=== PATIENT | female | born 1985 | race Caucasian/White ===

== ENCOUNTER 2018-12-21 10:14 | Outpatient (CLI) | payer OTHER, MEDICAID ==
[~2018-12-21 10:14] MED LIST: CYCL-1 PO; LIDO700A32 TOP
[2018-12-21 11:36] LABS: BASOPHILS # (AUTO) 0.1 X10'3 (0-0.2); BASOPHILS % (AUTO) 0.6 % (0-1); EOSINOPHILS # (AUTO) 0.1 X10'3 (0-0.9); EOSINOPHILS % (AUTO) 1.4 % (0-6); HEMATOCRIT 39.5 % (35.0-45.0); HEMOGLOBIN 13.5 g/dl (12.0-16.0); LYMPHOCYTES # (AUTO) 2.6 X10'3 (1.1-4.8); LYMPHOCYTES % (AUTO) 27.5 % (21-51); MEAN CORPUSCULAR HEMOGLOBIN 30.2 PG (27.0-31.0); MEAN CORPUSCULAR VOLUME 88.6 FL (78-98); MEAN PLATELET VOLUME 6.9 FL (7.4-10.4); MONOCYTES # (AUTO) 0.6 X10'3 (0-0.9); MONOCYTES % (AUTO) 6.1 % (2-12); NEUTROPHILS # (AUTO) 6.1 X10'3 (1.8-7.7); NEUTROPHILS % (AUTO) 64.4 % (42-75); PLATELET COUNT 389 X10'3 (140-440); RED BLOOD COUNT 4.46 X10'6 (4.20-5.60); RED CELL DISTRIBUTION WIDTH 13.1 % (11.5-14.5); WHITE BLOOD COUNT 9.5 X10'3 (4.5-11.0)
[2018-12-21 12:11] LABS: ALANINE AMINOTRANSFERASE 19 U/L (12-78); ALBUMIN 3.9 G/DL (3.4-5.0); ALBUMIN/GLOBULIN RATIO 1.2 (1.1-1.5); ALKALINE PHOSPHATASE 70 IU/L (46-116); ANION GAP 5 (8-16); ASPARTATE AMINO TRANSFERASE 1 U/L (10-37); BILIRUBIN,TOTAL 0.6 MG/DL (0.1-1.0); BLOOD UREA NITROGEN 7 MG/DL (7-18); BUN/CREATININE RATIO 9.2 (6.6-38.0); CHLORIDE 105 MMOL/L (99-107); CHOL/HDL RATIO 2.9 (0.00-4.99); CHOLESTEROL 140 MG/DL (0-200); CREATININE 0.76 MG/DL (0.40-0.90); GLUCOSE 87 MG/DL (70-104); HDL CHOLESTEROL 49 MG/DL (35-60); LDL CHOLESTEROL 84 MG/DL (50-100); SODIUM 140 MMOL/L (135-145); TOTAL CARBON DIOXIDE 29.6 MMOL/L (24-32); TOTAL PROTEIN 7.1 G/DL (6.4-8.2); TRIGLYCERIDES 64 MG/DL (20-135); eGFR 87 ML/MIN
[2018-12-22 11:30] LABS: VITAMIN D, 25-HYDROXY 23.4 ng/mL (30.0-100.0)
== END 2018-12-21 23:59 | disposition home or self-care (01) ==
LOC: LAB 10:14
PROVIDERS: ATTEND Family Medicine
DX: F31.81 Bipolar II disorder (principal); E03.9 Hypothyroidism, unspecified; Z98.890 Other specified postprocedural states
CPT/HCPCS: 36415; 80053; 80061; 82306; 82607; 82746; 84436; 84443; 85025

== ENCOUNTER 2019-05-14 15:02 | Emergency (ER) | payer OTHER, MEDICAID ==
[~2019-05-14] VITALS: Ht 164.5 cm; Wt 78.0 kg
[2019-05-14 15:12] VITALS: BP 109/67
[2019-05-14] MEDS ORDERED: AMOX-580 PO (16:29)
== END 2019-05-14 16:41 | disposition home or self-care (01) ==
LOC: ER 15:03
DX: J32.0 Chronic maxillary sinusitis (principal); R05 Cough; Z79.899 Other long term (current) drug therapy
CPT/HCPCS: 99283

== ENCOUNTER 2024-04-20 12:02 | Outpatient (CLI) | payer BC, OTHER ==
[2024-04-20 13:05] LABS: BASOPHILS % (AUTO) 0.6 % (0-1); EOSINOPHILS # (AUTO) 0.1 X10'3 (0-0.9); EOSINOPHILS % (AUTO) 1.9 % (0-6); HEMATOCRIT 40.2 % (35.0-45.0); HEMOGLOBIN 13.6 g/dl (12.0-16.0); LYMPHOCYTES # (AUTO) 2.6 X10'3 (1.1-4.8); LYMPHOCYTES % (AUTO) 33.7 % (21-51); MEAN CORPUSCULAR HEMOGLOBIN 30.3 PG (27.0-31.0); MEAN CORPUSCULAR HGB CONC 33.8 g/dL (33.0-36.5); MEAN CORPUSCULAR VOLUME 89.4 FL (78-98); MEAN PLATELET VOLUME 7.1 FL (7.4-10.4); MONOCYTES # (AUTO) 0.6 X10'3 (0-0.9); MONOCYTES % (AUTO) 7.9 % (2-12); NEUTROPHILS # (AUTO) 4.3 X10'3 (1.8-7.7); NEUTROPHILS % (AUTO) 55.9 % (42-75); PLATELET COUNT 417 X10'3 (140-440); RED CELL DISTRIBUTION WIDTH 13.9 % (11.5-14.5); WHITE BLOOD COUNT 7.7 X10'3 (4.5-11.0)
[2024-04-20 13:06] LABS: ALANINE AMINOTRANSFERASE 20 U/L (12-78); ALBUMIN/GLOBULIN RATIO 1.2 (1.1-1.5); ALKALINE PHOSPHATASE 61 IU/L (46-116); ANION GAP 5 (8-16); ASPARTATE AMINO TRANSFERASE 16 U/L (10-37); BILIRUBIN,TOTAL 0.6 MG/DL (0.1-1.0); BLOOD UREA NITROGEN 8 MG/DL (7-18); BUN/CREATININE RATIO 10.3 (10.0-20.0); CHLORIDE 105 MMOL/L (99-107); CREATININE 0.78 MG/DL (0.40-0.90); GLUCOSE 86 MG/DL (70-104); POTASSIUM 3.7 MMOL/L (3.5-5.1); SODIUM 140 MMOL/L (135-145); TOTAL CARBON DIOXIDE 30.4 MMOL/L (24-32); TOTAL PROTEIN 7.4 G/DL (6.4-8.2); eGFR 82 ML/MIN
[2024-04-20 13:15] LABS: CHOL/HDL RATIO 3.3 (0.00-4.99); CHOLESTEROL 190 MG/DL (0-200); HDL CHOLESTEROL 58 MG/DL (35-60); LDL CHOLESTEROL 104 MG/DL (50-100); THYROID STIMULATING HORMONE 1.43 ulU/ml (0.34-4.50); TRIGLYCERIDES 99 MG/DL (20-135)
[2024-04-22 11:31] LABS: FOLATE SERUM(FOLIC) 11.9 ng/mL (>3.0); VITAMIN D, 25-HYDROXY 22.7 ng/mL (30.0-100.0)
== END 2024-04-20 23:59 | disposition home or self-care (01) ==
LOC: LAB 12:02
PROVIDERS: ATTEND Family Medicine
DX: E07.9 Disorder of thyroid, unspecified (principal); R53.83 Other fatigue; R06.00 Dyspnea, unspecified; R63.5 Abnormal weight gain; I49.9 Cardiac arrhythmia, unspecified; F41.9 Anxiety disorder, unspecified; F32.A Depression, unspecified; Z76.89 Persons encountering health services in other specified circumstances
CPT/HCPCS: 36415; 80053; 80061; 82306; 82607; 82746; 84439; 84443; 85025

== ENCOUNTER 2024-04-20 14:15 | Outpatient (CLI) | payer BC, OTHER | END 2024-04-20 23:59 | disposition home or self-care (01) | LOC: LAB 14:15 | PROVIDERS: ATTEND Family Medicine | DX: Z53.9 Procedure and treatment not carried out, unspecified reason (principal) ==

== ENCOUNTER 2024-04-27 19:36 | Emergency (ER) | payer BC ==
[~2024-04-27] VITALS: Ht 164.5 cm; Wt 88.2 kg
[2024-04-27 19:44] VITALS: BP 125/77; PULSE 77; RESP 16; TEMP 97.7; O2SAT 97
[2024-04-27 20:27] LABS: ALANINE AMINOTRANSFERASE 20 U/L (12-78); ALBUMIN/GLOBULIN RATIO 1.3 (1.1-1.5); ALKALINE PHOSPHATASE 62 IU/L (46-116); ANION GAP 8 (8-16); ASPARTATE AMINO TRANSFERASE 18 U/L (10-37); BILIRUBIN,TOTAL 0.6 MG/DL (0.1-1.0); BLOOD UREA NITROGEN 4 MG/DL (7-18); CALCIUM 9.1 MG/DL (8.5-10.1); CHLORIDE 102 MMOL/L (99-107); GLUCOSE 135 MG/DL (70-104); POTASSIUM 3.3 MMOL/L (3.5-5.1); SODIUM 138 MMOL/L (135-145); TOTAL CARBON DIOXIDE 27.8 MMOL/L (24-32); TOTAL PROTEIN 7.2 G/DL (6.4-8.2); eCRCL 83 ML/MIN; eGFR 79 ML/MIN
[2024-04-27 20:38] LABS: BASOPHILS % (AUTO) 0.4 % (0-1); EOSINOPHILS # (AUTO) 0.1 X10'3 (0-0.9); EOSINOPHILS % (AUTO) 1.1 % (0-6); HEMATOCRIT 39.1 % (35.0-45.0); LYMPHOCYTES # (AUTO) 3.1 X10'3 (1.1-4.8); LYMPHOCYTES % (AUTO) 29.8 % (21-51); MEAN CORPUSCULAR HEMOGLOBIN 29.6 PG (27.0-31.0); MEAN CORPUSCULAR HGB CONC 33.3 g/dL (33.0-36.5); MEAN CORPUSCULAR VOLUME 88.9 FL (78-98); MEAN PLATELET VOLUME 7.5 FL (7.4-10.4); MONOCYTES # (AUTO) 0.8 X10'3 (0-0.9); MONOCYTES % (AUTO) 7.2 % (2-12); NEUTROPHILS # (AUTO) 6.4 X10'3 (1.8-7.7); NEUTROPHILS % (AUTO) 61.5 % (42-75); PLATELET COUNT 371 X10'3 (140-440); RED CELL DISTRIBUTION WIDTH 13.6 % (11.5-14.5); WHITE BLOOD COUNT 10.4 X10'3 (4.5-11.0)
[2024-04-27 20:54] LABS: PRO BRAIN NATRIURETIC PEPTIDE 36 PG/ML (0-125)
== END 2024-04-27 21:55 | disposition left against medical advice (07) ==
LOC: ER 19:37
DX: R07.9 Chest pain, unspecified (principal); Z53.21 Procedure and treatment not carried out due to patient leaving prior to being seen by health care provider
CPT/HCPCS: 36415; 71045; 80053; 83880; 84484; 85025; 93005

== ENCOUNTER 2024-05-12 16:28 | Outpatient (CLI) | payer BC | END 2024-05-12 23:59 | disposition home or self-care (01) | LOC: CARD DIAG 16:28 | PROVIDERS: ATTEND Student in an Organized Health Care Education/Training Program | DX: I08.0 Rheumatic disorders of both mitral and aortic valves (principal); R06.02 Shortness of breath; R07.89 Other chest pain; R42 Dizziness and giddiness; R53.83 Other fatigue | CPT/HCPCS: 93306 ==

== ENCOUNTER 2024-05-24 14:01 | Outpatient (CLI) | payer BC ==
[~2024-05-24] VITALS: Ht 162.6 cm; Wt 88.1 kg
[2024-05-24] VITALS (7 sets, daily range): BP systolic 101–121; BP diastolic 53–64; PULSE 71–96; RESP 18; O2SAT 97
[2024-05-24] MEDS: regadenoson 0.4mg/5ml syringe IV ONE (14:56)
== END 2024-05-24 23:59 | disposition home or self-care (01) ==
LOC: NM 14:01
PROVIDERS: ATTEND Student in an Organized Health Care Education/Training Program
DX: R06.02 Shortness of breath (principal); R07.89 Other chest pain; R42 Dizziness and giddiness; R53.83 Other fatigue
CPT/HCPCS: 78452; 93017; A9500; J2785

== ENCOUNTER 2024-11-21 10:50 | Outpatient (CLI) | payer BC ==
[2024-11-21 11:26] LABS: BASOPHILS # (AUTO) 0.1 X10'3 (0-0.2); BASOPHILS % (AUTO) 0.9 % (0-1); EOSINOPHILS # (AUTO) 0.1 X10'3 (0-0.9); EOSINOPHILS % (AUTO) 1.2 % (0-6); HEMATOCRIT 39.6 % (35.0-45.0); HEMOGLOBIN 13.7 g/dl (12.0-16.0); LYMPHOCYTES # (AUTO) 1.9 X10'3 (1.1-4.8); LYMPHOCYTES % (AUTO) 26.3 % (21-51); MEAN CORPUSCULAR HEMOGLOBIN 29.7 PG (27.0-31.0); MEAN CORPUSCULAR HGB CONC 34.6 g/dL (33.0-36.5); MEAN CORPUSCULAR VOLUME 86.1 FL (78-98); MEAN PLATELET VOLUME 6.6 FL (7.4-10.4); MONOCYTES # (AUTO) 0.6 X10'3 (0-0.9); MONOCYTES % (AUTO) 8.3 % (2-12); NEUTROPHILS # (AUTO) 4.6 X10'3 (1.8-7.7); NEUTROPHILS % (AUTO) 63.3 % (42-75); PLATELET COUNT 393 X10'3 (140-440); RED BLOOD COUNT 4.59 X10'6 (4.20-5.60); RED CELL DISTRIBUTION WIDTH 13.8 % (11.5-14.5); WHITE BLOOD COUNT 7.3 X10'3 (4.5-11.0)
[2024-11-21 11:52] LABS: ALANINE AMINOTRANSFERASE 25 U/L (12-78); ALBUMIN 3.8 G/DL (3.4-5.0); ALBUMIN/GLOBULIN RATIO 1.3 (1.1-1.5); ALKALINE PHOSPHATASE 79 IU/L (46-116); ANION GAP 7 (8-16); ASPARTATE AMINO TRANSFERASE 13 U/L (10-37); BILIRUBIN,TOTAL 0.7 MG/DL (0.1-1.0); BLOOD UREA NITROGEN 6 MG/DL (7-18); CALCIUM 9.1 MG/DL (8.5-10.1); CHLORIDE 105 MMOL/L (99-107); CHOL/HDL RATIO 3.1 (0.00-4.99); CHOLESTEROL 182 MG/DL (0-200); FREE T4 (FREE THYROXINE) 0.84 NG/DL (0.73-1.40); GLUCOSE 88 MG/DL (70-104); HDL CHOLESTEROL 58 MG/DL (35-60); LDL CHOLESTEROL 108 MG/DL (50-100); POTASSIUM 4.2 MMOL/L (3.5-5.1); SODIUM 141 MMOL/L (135-145); THYROID STIMULATING HORMONE 3.25 ulU/ml (0.34-4.50); TOTAL CARBON DIOXIDE 28.7 MMOL/L (24-32); TOTAL PROTEIN 6.8 G/DL (6.4-8.2); TRIGLYCERIDES 76 MG/DL (20-135); eGFR > 90 ML/MIN
[2024-11-22 13:13] LABS: FOLATE SERUM(FOLIC) 14.3 ng/mL (>3.0)
== END 2024-11-21 23:59 | disposition home or self-care (01) ==
LOC: LAB 10:50
PROVIDERS: ATTEND Family Medicine
DX: R63.5 Abnormal weight gain (principal); R53.83 Other fatigue; R06.00 Dyspnea, unspecified; E07.9 Disorder of thyroid, unspecified; I49.9 Cardiac arrhythmia, unspecified; F41.9 Anxiety disorder, unspecified; F32.A Depression, unspecified; Z76.89 Persons encountering health services in other specified circumstances; B34.9 Viral infection, unspecified
CPT/HCPCS: 36415; 80053; 80061; 82306; 82607; 82746; 84439; 84443; 85025

== ENCOUNTER 2025-01-25 08:54 | Outpatient (CLI) | payer BC ==
[~2025-01-25 08:54] MED LIST changes: +ALBU8HFA PO; +HYDR-3965 PO; +LIDO-52 TOP; -LIDO700A32 TOP
[2025-01-25 09:45] LABS: MEAN PLATELET VOLUME 7.5 FL (7.4-10.4); RED CELL DISTRIBUTION WIDTH 14.2 % (11.5-14.5)
[2025-01-25 09:54] LABS: CREATININE 0.61 MG/DL (0.40-0.90); TOTAL CARBON DIOXIDE 27.0 MMOL/L (24-32); eGFR > 90 ML/MIN
[2025-01-26 09:12] LABS: THIIODOTHRONINE, FREE, SERUM 3.3 pg/mL (2.0-4.4)
[2025-01-27 05:12] LABS: VITAMIN D, 1,25 DIHYDROXY 36.0 pg/mL (24.8-81.5)
== END 2025-01-25 23:59 | disposition home or self-care (01) ==
LOC: LAB 08:54
PROVIDERS: ATTEND Hospitalist
DX: E03.9 Hypothyroidism, unspecified (principal)
CPT/HCPCS: 36415; 80053; 82652; 82728; 83090; 84439; 84443; 84481; 84482; 85025

== ENCOUNTER 2025-04-04 12:43 | Outpatient (CLI) | payer BC ==
--- NOTE | 2025-04-04 14:13 | RADIOLOGY REPORT ---
TRANSABDOMINAL AND TRANSVAGINAL PELVIC ULTRASOUND CLINICAL HISTORY: EXCESSIVE AND FREQUENT MENSTRUATION WITH REGULAR CYCLE TECHNIQUE: Multiple grayscale ultrasound images were obtained of the pelvis via transabdominal and transvaginal approach. Limited color Doppler and spectral Doppler acquisitions were also obtained. COMPARISON: None FINDINGS: Uterus: 9.7 x 4.6 x 5.1 cm. The uterine contour is smooth. No myometrial masses are seen. There is a cervical nabothian cyst measuring 1.3 cm with greater than fluid echogenicity internal contents which could reflect blood products or proteinaceous secretions. No internal blood flow seen. Endometrium: 1.0 cm. No endometrial mass is seen. Right adnexa: right ovary 2.8 x 1.7 x 3.4 cm. Normal arterial blood flow in the ovary. No right adnexal mass seen. Left adnexa: left ovary 2.4 x 1.4 x 2.1 cm. Normal arterial blood flow in the ovary. No left adnexal mass seen. Other: None IMPRESSION: 1. Cystic structure in the cervix containing greater than fluid echogenicity internal contents which could reflect blood products or proteinaceous secretions within a cervical nabothian cyst. No blood flow seen. 2. Normal ovaries. Normal endometrium.
== END 2025-04-04 23:59 | disposition home or self-care (01) ==
LOC: RAD 12:43
PROVIDERS: ATTEND Internal Medicine
DX: N88.8 Other specified noninflammatory disorders of cervix uteri (principal); N92.0 Excessive and frequent menstruation with regular cycle
CPT/HCPCS: 76830; 76856; 93976

== ENCOUNTER 2025-05-07 10:11 | Outpatient (CLI) | payer BC ==
[2025-05-08 08:16] LABS: THIIODOTHRONINE, FREE, SERUM 2.7 pg/mL (2.0-4.4); THYROXINE (T4) 6.3 ug/dL (4.5-12.0)
== END 2025-05-07 23:59 | disposition home or self-care (01) ==
LOC: LAB 10:11
PROVIDERS: ATTEND Internal Medicine
DX: E03.9 Hypothyroidism, unspecified (principal)
CPT/HCPCS: 36415; 84436; 84443; 84481